=== PATIENT | female | born 1950 | race Asian ===

== ENCOUNTER 2021-04-01 11:04 | Emergency (ER) | payer OTHER ==
--- OUTSIDE RECORDS SUMMARY | 2021-04-01 11:07 | XMS REPORT | Continuity of Care Document ---
:1950 Author Organization [facility] t Address [address] [place] [address] Care Team Providers Name Role Phone Holly Stanley Attending Clinician Unavailable Evelyne Izquierdo V Attending Clinician Unavailable Jaden Admitting Clinician Unavailable Payers Payer Name Policy Type Policy Number Effective Date Expiration Date S ource Problems This patient has no known problems. Allergies, Adverse Reactions, Alerts Allergy Allergy Status Severity Reaction(s) Onset Inactive Treating Comm ents Source Name Type Date Date Clinician morphine DA Active U 2017-0 [facility] [place] 00:00: d 00 [facility] morphine DA Active U [facility] 2017-0 [facility] [place] 00:00: d 00 [facility] Medications This patient has no known medications. Procedures This patient has no known procedures. Encounters Start End Encounter Admission Attending Care Care Encounter Source Date/Time Date/Time Type Type Clinicians Facility Department ID 2021-01-03 2021-01-03 Outpatient EL ApolinarobeyJORGE ALBERTO [id number] [facility] 08:00:00 08:00:00 Visesteban [id number] [facility] 2021-01-03 2021-01-03 Outpatient ESTEFANI JORGE ALBERTO Stanley [id number] [facility] 08:00:00 08:00:00 Aleksaksmary 64 [facility] 2019-06-26 2019-06-26 Outpatient ESTEFANI AZUL LABO LA2 [id number] [facility] 09:28:00 09:28:00 n, P [id number] [facility] Results Test Description Test Time Test Comments Results Result Comments Source COMPREHENSIVE METABOLIC PANEL 2019-06-27 10:09:00 Test Item Value Reference Range Interpretation Comme nts SODIUM (test code = NA) 140 mmol/L 134-147 N POTASSIUM (test code = K) 4.4 mmol/L 3.4-5.0 N CHLORIDE (test code = CL) 107 mmol/L 100-108 N CARBON DIOXIDE (test code = CO2) 26 mmol/L 21-32 N ANION GAP (test code = GAP) 7.0 GAP calc 4.0-15.0 N GLUCOSE (test code = GLU) 90 MG/DL 70-110 N BLOOD UREA NITROGEN (test code = BUN) 21 MG/DL 7-18 H GLOMERULAR FILTRATION RATE (test code = GFR) 36 estGFR >60 L CREATININE (test code = CREAT) 1.8 MG/DL 0.6-1.0 H TOTAL PROTEIN (test code = PROT) 8.2 G/DL 6.4-8.2 N ALBUMIN (test code = ALB) 3.9 G/DL 3.4-5.0 N GLOBULIN (test code = GLOB) 4.3 GM/dL ALBUMIN/GLOBULIN RATIO (test code = A/G) 0.9 RATIO 1.2-2.2 L CALCIUM (test code = CA) 9.7 MG/DL 8.5-10.1 N BILIRUBIN TOTAL (test code = BILT) 0.60 MG/DL 0.2-1.2 N SGOT/AST (test code = AST) 11 Unit/L 15-37 L SGPT/ALT (test code = ALT) 21 Unit/L 12-78 N ALKALINE PHOSPHATASE TOTAL (test code = ALKP) 108 Unit/L 45-117 N LIPID PROFILE (CORONARY RISK)2019-06-27 10:09:00 Test Item Value Reference Range Interpretation Comments TRIGLYCERIDES (test code = TRIG) 88 MG/DL 0-150 N CHOLESTEROL (test code = CHOL) 109 MG/DL 133-200 L CHOLESTEROL/HDL RATIO (test code = 2.79 RATIO >0 CHOLHDL) HDL CHOLESTEROL (test code = HDL) 39 MG/DL 40-59 L NON-HDL CHOLESTEROL (test code = 70 mg/dL <130 NHDL) LIPOPROTEIN LDL (test code = LDL) 62 MG/DL 0-129 N LDL/HDL (test code = LDL/HDL) 1.58 Ratio 1.48-3.22 Avg N T3 [id number] 10:09:00 Test Item Value Reference Range Interpretation Comments T3 FREE (test code = 2.4 pg/mL 2.0-4.4 Perform ed At: [facility] T3F) [id number] [place], [place] [id number] Tobar MD Ph:[phone] T4 [id number] 10:09:00 Test Item Value Reference Range Interpretation Comments T4 FREE (test code = T4F) 0.96 NG/DL 0.89-1.76 N THYROID STIMULATING [id number] 10:09:00 Test Item Value Reference Range Interpretation Comments THYROID STIMULATING HORMONE 1.690 mcIU/ML 0.340-4.820 N (test code = TSH) VITAMIN D [id number] 10:09:00 Test Item Value Reference Range Interpretation Comments VITAMIN D 29.4 ng/mL 30.0-100.0 A Vitamin D defic iency has 25-HYDROXY (test been define d by the code = VITD25) [facility] edicine and an Endocrine So ety practice guidel ine as alevel of serum 25-OH vitamin D less than 20 ng/mL (1,2).The Endocrine Society went on to further define vitamin Dinsufficiency as a level between 21 and 29 ng/mL (2).1. IOM (Ins titute of Medicine). 2010 . Dietary reference int akes for calcium and D. [place]: The [employer] [place] [employer] .2. Yuriy MF, Rhianna NC, Johny ferrer GARZA, et al. Evaluatio n, treatment, and prevention of vitamin D deficiency: an Endocrine Society clinica l practice guideline. USMAN EM. 2010; 96(7):1911-30.P erformed At: [facility] [id number] [place], [place] [id number] Tobar MD Ph:[phone] COMPREHENSIVE METABOLIC [id number] 08:10:00 Test Item Value Reference Range Interpretation Comments SODIUM (test code = NA) 140 mmol/L 134-147 N POTASSIUM (test code = K) 4.4 mmol/L 3.4-5.0 N CHLORIDE (test code = CL) 107 mmol/L 100-108 N CARBON DIOXIDE (test code = CO2) 26 mmol/L 21-32 N ANION GAP (test code = GAP) 7.0 GAP calc 4.0-15.0 N GLUCOSE (test code = GLU) 90 MG/DL 70-110 N BLOOD UREA NITROGEN (test code = 21 MG/DL 7-18 H BUN) GLOMERULAR FILTRATION RATE (test 36 estGFR >60 L code = GFR) CREATININE (test code = CREAT) 1.8 MG/DL 0.6-1.0 H TOTAL PROTEIN (test code = PROT) 8.2 G/DL 6.4-8.2 N ALBUMIN (test code = ALB) 3.9 G/DL 3.4-5.0 N GLOBULIN (test code = GLOB) 4.3 GM/dL ALBUMIN/GLOBULIN RATIO (test 0.9 RATIO 1.2-2.2 L code = A/G) CALCIUM (test code = CA) 9.7 MG/DL 8.5-10.1 N BILIRUBIN TOTAL (test code = 0.60 MG/DL 0.2-1.2 N BILT) SGOT/AST (test code = AST) 11 Unit/L 15-37 L SGPT/ALT (test code = ALT) 21 Unit/L 12-78 N ALKALINE PHOSPHATASE TOTAL (test 108 Unit/L 45-117 N code = ALKP) LIPID PROFILE (CORONARY RISK)2019-06-27 08:10:00 Test Item Value Reference Range Interpretation Comments TRIGLYCERIDES (test code = TRIG) 88 MG/DL 0-150 N CHOLESTEROL (test code = CHOL) 109 MG/DL 133-200 L CHOLESTEROL/HDL RATIO (test code = 2.79 RATIO >0 CHOLHDL) HDL CHOLESTEROL (test code = HDL) 39 MG/DL 40-59 L NON-HDL CHOLESTEROL (test code = 70 mg/dL <130 NHDL) LIPOPROTEIN LDL (test code = LDL) 62 MG/DL 0-129 N LDL/HDL (test code = LDL/HDL) 1.58 Ratio 1.48-3.22 Avg N T3 [id number] 08:10:00 Test Item Value Reference Range Interpretation Comments T3 FREE (test code = 2.4 pg/mL 2.0-4.4 Perform ed At: [facility] T3F) [id number] [place], [place] [id number] Conrad Tobar MD Ph:[phone] T4 [id number] 08:10:00 Test Item Value Reference Range Interpretation Comments T4 FREE (test code = T4F) 0.96 NG/DL 0.89-1.76 N THYROID STIMULATING [id number] 08:10:00 Test Item Value Reference Range Interpretation Comments THYROID STIMULATING HORMONE 1.690 mcIU/ML 0.340-4.820 N (test code = TSH) VITAMIN D [id number] 08:10:00 Test Item Value Reference Range Interpretation Comments VITAMIN D 25-HYDROXY (test code = VITD25) CBC W/AUTO [id number] 10:28:00 Test Item Value Reference Range Interpretation Comments WHITE BLOOD CELL (test 6.9 K/mm3 3.5-11.0 N code = WBC) RED BLOOD CELL (test 4.38 M/mm3 4.70-6.10 L code = RBC) HEMOGLOBIN (test code 14.3 G/DL 10.4-14.9 N = HGB) HEMATOCRIT (test code 44.8 % 31.5-44.1 H = HCT) MEAN CELL VOLUME (test 102.3 Fl 84.5-98.6 H code = MCV) MEAN CELL HGB (test 32.6 pg 27.0-34.2 N code = MCH) MEAN CELL HGB 31.9 G/DL 31.5-34.0 N CONCETRATION (test code = MCHC) RED CELL DISTRIBUTION 13.8 SD 11.5-14.5 N WIDTH (test code = RDW) PLATELET COUNT (test 197.0 K/mm3 150-450 N code = PLT) MEAN PLATELET VOLUME 8.60 fL 7.0-10.5 N (test code = MPV) NEUTROPHIL % (test 46.0 % 40-76 N code = NT%) LYMPHOCYTE % (test 41.6 % 20.5-51.1 N code = LY%) MONOCYTE % (test code 9.8 % 1.7-9.3 H = MO%) EOSINOPHIL % (test 2.3 % 0.0-6.0 N code = EO%) BASOPHIL % (test code 0.3 % 0.0-2.0 N = BA%) NEUTROPHIL # (test 3.19 K/mm3 1.8-7.6 N code = NT#) LYMPHOCYTE # (test 2.9 K/mm3 0.6-3.2 N code = LY#) MONOCYTE # (test code 0.7 K/mm3 0.3-1.1 N = MO#) EOSINOPHIL # (test 0.2 K/mm3 0.0-0.4 N code = EO#) BASOPHIL # (test code 0.0 K/mm3 0.0-0.1 N = BA#) MANUAL DIFF REQUIRED NO DIFF/SCN CRITERIA SLIDE R TRACIW (test code = MDIFF) CONSISTA NT WITH AUTO DIFFERENTIAL. COMPREHENSIVE METABOLIC [id number] 10:20:00 Test Item Value Reference Range Interpretation Comments SODIUM (test code = NA) 140 mmol/L 134-147 N POTASSIUM (test code = K) 4.4 mmol/L 3.4-5.0 N CHLORIDE (test code = CL) 107 mmol/L 100-108 N CARBON DIOXIDE (test code = CO2) 26 mmol/L 21-32 N ANION GAP (test code = GAP) 7.0 GAP calc 4.0-15.0 N GLUCOSE (test code = GLU) 90 MG/DL 70-110 N BLOOD UREA NITROGEN (test code = 21 MG/DL 7-18 H BUN) GLOMERULAR FILTRATION RATE (test 36 estGFR >60 L code = GFR) CREATININE (test code = CREAT) 1.8 MG/DL 0.6-1.0 H TOTAL PROTEIN (test code = PROT) 8.2 G/DL 6.4-8.2 N ALBUMIN (test code = ALB) 3.9 G/DL 3.4-5.0 N GLOBULIN (test code = GLOB) 4.3 GM/dL ALBUMIN/GLOBULIN RATIO (test 0.9 RATIO 1.2-2.2 L code = A/G) CALCIUM (test code = CA) 9.7 MG/DL 8.5-10.1 N BILIRUBIN TOTAL (test code = 0.60 MG/DL 0.2-1.2 N BILT) SGOT/AST (test code = AST) 11 Unit/L 15-37 L SGPT/ALT (test code = ALT) 21 Unit/L 12-78 N ALKALINE PHOSPHATASE TOTAL (test 108 Unit/L 45-117 N code = ALKP) LIPID PROFILE (CORONARY RISK)2019-06-26 10:20:00 Test Item Value Reference Range Interpretation Comments TRIGLYCERIDES (test code = TRIG) 88 MG/DL 0-150 N CHOLESTEROL (test code = CHOL) 109 MG/DL 133-200 L CHOLESTEROL/HDL RATIO (test code = 2.79 RATIO >0 CHOLHDL) HDL CHOLESTEROL (test code = HDL) 39 MG/DL 40-59 L NON-HDL CHOLESTEROL (test code = 70 mg/dL <130 NHDL) LIPOPROTEIN LDL (test code = LDL) 62 MG/DL 0-129 N LDL/HDL (test code = LDL/HDL) 1.58 Ratio 1.48-3.22 Avg N T3 [id number] 10:20:00 Test Item Value Reference Range Interpretation Comments T3 FREE (test code = T3F) T4 [id number] 10:20:00 Test Item Value Reference Range Interpretation Comments T4 FREE (test code = T4F) 0.96 NG/DL 0.89-1.76 N THYROID STIMULATING [id number] 10:20:00 Test Item Value Reference Range Interpretation Comments THYROID STIMULATING HORMONE 1.690 mcIU/ML 0.340-4.820 N (test code = TSH) VITAMIN D [id number] 10:20:00 Test Item Value Reference Range Interpretation Comments VITAMIN D 25-HYDROXY (test code = VITD25) CBC W/AUTO [id number] 10:14:00 Test Item Value Reference Range Interpretation Comments WHITE BLOOD CELL (test code = 6.9 K/mm3 3.5-11.0 N WBC) RED BLOOD CELL (test code = RBC) 4.38 M/mm3 4.70-6.10 L HEMOGLOBIN (test code = HGB) 14.3 G/DL 10.4-14.9 N HEMATOCRIT (test code = HCT) 44.8 % 31.5-44.1 H MEAN CELL VOLUME (test code = 102.3 Fl 84.5-98.6 H MCV) MEAN CELL HGB (test code = MCH) 32.6 pg 27.0-34.2 N MEAN CELL HGB CONCETRATION (test 31.9 G/DL 31.5-34.0 N code = MCHC) RED CELL DISTRIBUTION WIDTH (test 13.8 SD 11.5-14.5 N code = RDW) PLATELET COUNT (test code = PLT) 197.0 K/mm3 150-450 N MEAN PLATELET VOLUME (test code = 8.60 fL 7.0-10.5 N MPV) NEUTROPHIL % (test code = NT%) % 40-76 N LYMPHOCYTE % (test code = LY%) % 20.5-51.1 N MONOCYTE % (test code = MO%) % 1.7-9.3 H EOSINOPHIL % (test code = EO%) % 0.0-6.0 N BASOPHIL % (test code = BA%) % 0.0-2.0 N NEUTROPHIL # (test code = NT#) K/mm3 1.8-7.6 N LYMPHOCYTE # (test code = LY#) K/mm3 0.6-3.2 N MONOCYTE # (test code = MO#) K/mm3 0.3-1.1 N EOSINOPHIL # (test code = EO#) K/mm3 0.0-0.4 N BASOPHIL # (test code = BA#) K/mm3 0.0-0.1 N MANUAL DIFF REQUIRED (test code = DIFF/SCN CRITERIA MDIFF) UA RFLX MICR CULT IF [id number] 10:13:00 Test Item Value Reference Range Interpretation Comments UA COLOR (test code = LIGHT YELLOW YEL/STRAW COLU) discript UA APPEARANCE (test code HAZY discript CLEAR A = APPU) UA GLUCOSE DIPSTICK (test NEGATIVE mg/dL NEG code = DGLUU) UA BILIRUBIN DIPSTICK NEGATIVE mg/dL NEG (test code = BILU) UA KETONE DIPSTICK (test NEGATIVE mg/dL NEG code = KETU) UA SPECIFIC GRAVITY (test 1.015 SG 1.005-1.030 code = SGU) UA BLOOD DIPSTICK (test 1+ mg/DL NEG A code = APRIL) UA PH DIPSTICK (test code 6.0 pH UNITS 5.0-7.0 = MAURY) UA PROTEIN DIPSTICK (test 1+ mg/dL NEG A code = PROU) UA UROBILINIOGEN DIPSTICK 0.2 mg/dL <2.0 (test code = URO) UA NITRITE DIPSTICK (test NEGATIVE SCREEN NEG code = EARLE) UA LEUKOCYTE ESTERASE 1+ Leuk/mcL NEGATIVE A DIPSTICK (test code = LEUU) UA WBC (test code = WBCU) 3-5 #WBC/HPF 0-3 A UA RBC (test code = RBCU) 1-3 #RBC/HPF 0-3 UA BACTERIA (test code = TRACE /HPF NONE-TRACE BACU) UA SQUAMOUS CELLS (test 2+ /HPF NONE A code = SQU) UA CULTURE NEEDED? (test NO, WBC<10 Criteria Culture CHK code = UACULT) UA RFLX MICR CULT IF [id number] 09:58:00 Test Item Value Reference Range Interpretation Comments UA COLOR (test code = LIGHT YELLOW YEL/STRAW COLU) discript UA APPEARANCE (test code HAZY discript CLEAR A = APPU) UA GLUCOSE DIPSTICK (test NEGATIVE mg/dL NEG code = DGLUU) UA BILIRUBIN DIPSTICK NEGATIVE mg/dL NEG (test code = BILU) UA KETONE DIPSTICK (test NEGATIVE mg/dL NEG code = KETU) UA SPECIFIC GRAVITY (test 1.015 SG 1.005-1.030 code = SGU) UA BLOOD DIPSTICK (test 1+ mg/DL NEG A code = APRIL) UA PH DIPSTICK (test code 6.0 pH UNITS 5.0-7.0 = MAURY) UA PROTEIN DIPSTICK (test 1+ mg/dL NEG A code = PROU) UA UROBILINIOGEN DIPSTICK 0.2 mg/dL <2.0 (test code = URO) UA NITRITE DIPSTICK (test NEGATIVE SCREEN NEG code = EARLE) UA LEUKOCYTE ESTERASE 1+ Leuk/mcL NEGATIVE A DIPSTICK (test code = LEUU) UA CULTURE NEEDED? (test Criteria Culture CHK code = UACULT)
[2021-04-01] MEDS ORDERED: ONDANSETRON 4 MG/2 ML VIAL ONE (13:07)
[2021-04-01 13:09] LABS: Absolute Lymphocytes (CBC) 3.1 K/uL (0.7-4.9); Basophils % 0.6 % (0-1.3); Hematocrit 46.9 % (36.0-45.0); Lymphocytes % 51.4 % (15.3-44.8); MPV 7.6 fL (7.6-11.3); RBC Red Blood Cell Count 4.76 M/uL (3.86-4.86)
[2021-04-01 13:26] LABS: Albumin 3.6 g/dL (3.4-5.0); Bilirubin Direct 0.2 mg/dL (0-0.2); Bilirubin Total 0.7 mg/dL (0.2-1.0); Potassium 4.5 mmol/L (3.5-5.1)
[2021-04-01] MEDS ORDERED: NA CHLORIDE 0.9% 500 ML ONE (13:51)
--- NOTE | 2021-04-01 13:59 | RAD REPORT ---
EXAM DESCRIPTION: CTAbdomen Pelvis Wo Contrast - 04/01/2021 1:51 pm CLINICAL HISTORY: ABD PAIN COMPARISON: No comparisons TECHNIQUE: CT of the abdomen and pelvis was performed. All CT scans are performed using dose optimization technique as appropriate and may include automated exposure control or mA/KV adjustment according to patient size. FINDINGS: Lower chest: Pacemaker leads. Cardiomegaly. Liver: No acute abnormality or suspicious lesions. Biliary: Cholelithiasis. Stomach: No significant focal abnormality. Duodenum: No significant focal abnormality. Pancreas: No significant abnormality. Spleen: No significant abnormality. Adrenal: No suspicious lesions. Kidney/ureter: No hydronephrosis. No renal calculi. Right upper pole renal lesion which is likely a c yst. Retroperitoneum: No retroperitoneal adenopathy. Vascular: No aneurysm. Bowel: No significant focal abnormality. Appendectomy. Peritoneum: No ascites or free air. Bladder: Grossly unremarkable. Reproductive: Hysterectomy. Bones: No acute fracture. Other: n/a IMPRESSION: No acute intra-abdominal or pelvic finding. Cholelithiasis without CT evidence of acute cholecystitis. Prior appendectomy. Incidental findings as noted above.
[2021-04-01 14:12] LABS: Blood Morphology Comment NOT SEEN (NOT SEEN); Platelet Estimate ADEQ; White Blood Cell Scan OK (OK)
--- NOTE | 2021-04-01 14:45 | EDPHYS ---
Physician Documentation [facility] Name: Mena Clarke Age: 70 yrs Sex: Female : 1950 Arrival Date: 04/01/2021 Time: 11:08 Bed 8 Private MD: ED Physician Leonor David HPI: 04/01 14:43 This 70 yrs old Female presents to ER via Ambulatory with complaints of Vomiting, kb Fever. 14:43 The patient presents to the emergency department with nausea, vomiting, abdominal pain. kb Onset: The symptoms/episode began/occurred Onset: The symptoms/episode began/occurred 4 day(s) ago. The patient has not recently seen a physician. 14:44 Possible causes: unknown. The symptoms are aggravated by nothing. The symptoms are kb alleviated by nothing. Associated signs and symptoms: Pertinent positives: abdominal pain, nausea, vomiting. Severity of symptoms: At their worst the symptoms were mild moderate in the emergency department the symptoms are unchanged. The patient has not experienced similar symptoms in the past. Historical: - Allergies: 12:08 No Known Allergies; jh5 - PMHx: 12:08 Congestive heart failure; Hypertensive disorder; Hypercholesterolemia; jh5 - Immunization history:: Adult Immunizations up to date. - Social history:: Smoking status: Patient denies any tobacco usage or history of. ROS: 14:42 Constitutional: Negative for fever, chills, and weight loss. kb 14:42 Abdomen/GI: Positive for abdominal pain, nausea and vomiting, Negative for diarrhea. 14:42 All other systems are negative. Exam: 14:42 Constitutional: This is a well developed, well nourished patient who is awake, alert, kb and in no acute distress. Head/Face: Normocephalic, atraumatic. ENT: Moist Mucous membranes Respiratory: Respirations even and unlabored. No increased work of breathing. Talking in full sentences Skin: Warm, dry with normal turgor. Normal color. MS/ Extremity: Pulses equal, no cyanosis. Neurovascular intact. Full, normal range of motion. Neuro: Awake and alert, GCS 15, oriented to person, place, time, and situation. Moves all extremities. Normal gait. Psych: Awake, alert, with orientation to person, place and time. Behavior, mood, and affect are within normal limits. 14:42 Abdomen/GI: Inspection: abdomen appears normal, Bowel sounds: normal, Palpation: soft, in all quadrants, mild abdominal tenderness, in the right upper quadrant. Vital Signs: 12:04 BP 100 / 66; Pulse 65; Resp 16; Temp 97.1; Pulse Ox 99% ; Weight 74.84 kg; Height 5 ft. jh5 3 in. (160.02 cm); 14:00 BP 90 / 67; Pulse 60; Resp 17; Pulse Ox 100% on R/A; tw2 14:40 BP 96 / 76; Pulse 62; Resp 17; Pulse Ox 100% ; Pain 0/10; jh6 12:04 Body Mass Index 29.23 (74.84 kg, 160.02 cm) jh5 MDM: 12:52 Patient medically screened. kb 14:42 Data reviewed: vital signs, nurses notes. Data interpreted: Pulse oximetry: on room air kb is 100 %. Interpretation: normal. Counseling: I had a detailed discussion with the patient and/or guardian regarding: the historical points, exam findings, and any diagnostic results supporting the discharge/admit diagnosis, lab results, radiology results, the need for outpatient follow up, a family practitioner, to return to the emergency department if symptoms worsen or persist or if there are any questions or concerns that arise at home. 12 12:52 Order name: Basic Metabolic Panel; Complete Time: 13:32 kb 04/01 12:52 Order name: CBC with Diff; Complete Time: 14:17 kb 04/01 12:52 Order name: Hepatic Function; Complete Time: 13:32 kb 04/01 12:52 Order name: Lipase; Complete Time: 13:32 kb 08 14:12 Order name: CBC Smear Scan; Complete Time: 14:17 EDMS 04/01 12:52 Order name: IV Saline Lock; Complete Time: 13:03 kb 04/01 12:52 Order name: Labs collected and sent; Complete Time: 13:03 kb 04/01 13:47 Order name: Abdomen ; Complete Time: 14:03 EDMS Administered Medications: 13:10 Drug: Zofran (Ondansetron) 4 mg Route: IVP; Site: right antecubital; jh6 14:55 Follow up: Response: No adverse reaction; Nausea is decreased tw2 14:15 Drug: NS 0.9% 500 ml Route: IV; Rate: bolus; Site: right antecubital; tw2 14:32 Follow up: IV Status: Completed infusion jh6 14:55 Follow up: Response: No adverse reaction; IV Status: Completed infusion; IV Intake: tw2 500ml Disposition: 22:30 Co-signature as Attending Physician, Leonor David MD I agree with the assessment and sp3 plan of care. Disposition Summary: 04/01/21 14:45 Discharge Ordered Location: Home kb Condition: Stable kb Diagnosis - Nausea with vomiting, unspecified kb - Abdominal pain, unspecified kb Followup: kb - With: Emergency Department - When: As needed - Reason: Worsening of condition Followup: kb - With: Private Physician - When: 2 - 3 days - Reason: Recheck today's complaints, Continuance of care, Re-evaluation by your physician Discharge Instructions: - Discharge Summary Sheet kb - Nausea and Vomiting, Adult, [id number] kb - Abdominal Pain, Adult, [id number] kb Forms: - Medication Reconciliation Form kb - Thank You Letter kb - Antibiotic Education kb - Prescription Opioid Use kb Prescriptions: - Zofran 4 mg Oral Tablet - take 1 tablet by ORAL route every 6 hours As needed; 20 tablet; Refills: 0, kb Product Selection Permitted - dicyclomine 20 mg Oral Tablet - take 1 tablet by ORAL route 4 times per day As needed; 20 tablet; Refills: 0, kb Product Selection Permitted Signatures: Dispatcher [employer] EDMS Carmencita Bergman, HAFSA-C ENERGY SPECIALIST-Corinna Carpenter RN RN tw2 Leonor David MD MD sp3 Sally Fountain, RN RN jh5 Tereza Ayon RN RN jh6 Corrections: (The following items were deleted from the chart) 13:47 13:33 Abdomen Pelvis W Con+CT.RAD.BRZ ordered. EDMS EDMS 14:12 13:10 Manual Differential ordered. EDMS EDMS 14:44 14:43 Onset: The symptoms/episode began/occurred kb kb
--- NOTE | 2021-04-01 14:45 | ER ---
Nurse's Notes [facility] Name: Mena Clarke Age: 70 yrs Sex: Female : 1950 Arrival Date: 04/01/2021 Time: 11:08 Bed 8 Private MD: Diagnosis: Nausea with vomiting, unspecified;Abdominal pain, unspecified Presentation: 04/01 12:04 Chief complaint: Patient states: nausea, vomiting, and stomach cramps, with chills 5 since Tuesday. I thought it was getting better, but it comes and goes. I have no appetite, I can hold down jello and apple sauce. Coronavirus screen: Vaccine status: Patient reports receiving the 2nd dose of the covid vaccine. Client denies travel out of the [place] in the last 14 days. Ebola Screen: Patient negative for fever greater than or equal to 101.5 degrees Fahrenheit, and additional compatible Ebola Virus Disease symptoms Patient denies exposure to infectious person. Patient denies travel to an Ebola-affected area in the 21 days before illness onset. No symptoms or risks identified at this time. Initial Sepsis Screen: Does the patient meet any 2 criteria? No. Patient's initial sepsis screen is negative. Does the patient have a suspected source of infection? No. Patient's initial sepsis screen is negative. Risk Assessment: Do you want to hurt yourself or someone else? Patient reports no desire to harm self or others. Onset of symptoms was March 30, 2021. 12:04 Method Of Arrival: Ambulatory [facility] 12:04 Acuity: BUDDY 3 jh5 Triage Assessment: 12:08 General: Appears in no apparent distress. well groomed, well developed, well nourished, [facility] Behavior is calm, cooperative, appropriate for age. Pain: Complains of pain in abdomen. GI: Reports upper abdominal pain, cramping. Historical: - Allergies: 12:08 No Known Allergies; jh5 - PMHx: 12:08 Congestive heart failure; Hypertensive disorder; Hypercholesterolemia; 5 - Immunization history:: Adult Immunizations up to date. - Social history:: Smoking status: Patient denies any tobacco usage or history of. Screenin:25 Abuse screen: Denies threats or abuse. Nutritional screening: No deficits noted. tw2 Tuberculosis screening: No symptoms or risk factors identified. Fall Risk None identified. Assessment: 12:28 General: Appears in no apparent distress. Behavior is calm, cooperative. jh6 12:28 General: Behavior is calm, cooperative. Pain: Complains of pain in right upper quadrant jh6 and left upper quadrant Pain currently is 3 out of 10 on a pain scale. at worst was 8 out of 10 on a pain scale. Quality of pain is described as crampy, Pain began 2-3 days ago. Is intermittent, Aggravated by eating. 12:28 GI: Abdomen is flat, non-distended, Bowel sounds present X 4 quads. hyperactive in jh6 umbilical area and left upper quadrant Abd is soft Abdomen is tender to palpation in right upper quadrant and left upper quadrant. 14:41 Pain: Pain currently is 0 out of 10 on a pain scale. Quality of pain is described as. 6 14:42 Reassessment: pt ambulatory to bathroom without needing assistance. pt states that she jh6 feels better and that she is not nauseated. 14:55 Reassessment: Patient appears in no apparent distress at this time. No changes from tw2 previously documented assessment. Patient and/or family updated on plan of care and expected duration. Pain level reassessed. Patient is alert, oriented x 3, equal unlabored respirations, skin warm/dry/pink. Vital Signs: 12:04 BP 100 / 66; Pulse 65; Resp 16; Temp 97.1; Pulse Ox 99% ; Weight 74.84 kg; Height 5 ft. 5 3 in. (160.02 cm); 14:00 BP 90 / 67; Pulse 60; Resp 17; Pulse Ox 100% on R/A; tw2 14:40 BP 96 / 76; Pulse 62; Resp 17; Pulse Ox 100% ; Pain 0/10; jh6 12:04 Body Mass Index 29.23 (74.84 kg, 160.02 cm) 5 ED Course: 11:08 Patient arrived in ED. ds1 12:07 Triage completed. 5 12:21 Bed in low position. Call light in reach. Pulse ox on. NIBP on. tw2 12:24 Corinna Rosen RN is Primary Nurse. tw2 12:25 Arm band placed on. tw2 12:51 Carmencita Bergman FNP-C is PHCP. kb 12:52 Leonor David MD is Attending Physician. kb 13:00 Inserted saline lock: 20 gauge in right antecubital area, using aseptic technique. tw2 Blood collected. 13:02 Initial lab(s) drawn, by me, sent to lab. jh6 13:50 Abdomen In Process Unspecified. EDMS 14:42 No provider procedures requiring assistance completed. jh6 14:54 IV discontinued, intact, bleeding controlled, No redness/swelling at site. Pressure tw2 dressing applied. Administered Medications: 13:10 Drug: Zofran (Ondansetron) 4 mg Route: IVP; Site: right antecubital; jh6 14:55 Follow up: Response: No adverse reaction; Nausea is decreased tw2 14:15 Drug: NS 0.9% 500 ml Route: IV; Rate: bolus; Site: right antecubital; tw2 14:32 Follow up: IV Status: Completed infusion jh6 14:55 Follow up: Response: No adverse reaction; IV Status: Completed infusion; IV Intake: tw2 500ml Intake: 14:55 IV: 500ml; Total: 500ml. tw2 Outcome: 14:45 Discharge ordered by . kb 14:54 Discharged to home with friend. tw2 14:54 Condition: stable 14:54 Discharge instructions given to patient, friend, Instructed on discharge instructions, follow up and referral plans. medication usage, Demonstrated understanding of instructions, follow-up care, medications, Prescriptions given X 2. 14:55 Patient left the ED. tw2 Signatures: Dispatcher [employer] EDCO Carmencita Bergman, CUPROUS CHLORIDE OPERATOR-C CUPROUS CHLORIDE OPERATOR-Fernanda Louie ds1 Corinna Rosen RN RN tw2 Sally Fountain RN RN jh5 Tereza Ayon RN RN jh6
[2021-04-01 15:22] VITALS: TEMP 97.1
[2021-04-01 15:24] VITALS: O2SAT 100
[2021-04-01 15:25] VITALS: BP 96/76
== END 2021-04-01 14:55 | disposition home or self-care (01) ==
LOC: ER 11:04
DX: R11.2 Nausea with vomiting, unspecified (principal); R10.9 Unspecified abdominal pain; I10 Essential (primary) hypertension
CPT/HCPCS: 85025; 80048; 36415; 80076; 83690; 74176; 96374; 99284; J7040; J2405